=== PATIENT | male | born 1995 | race African-American/Black ===

== ENCOUNTER 2019-02-15 21:14 | Emergency (ER) | payer OTHER ==
[~2019-02-15 21:14] MED LIST: EPINEPHRINE INJ 1 MG/10 ML DISP.SYRIN ONE; ROCURONIUM BROMIDE INJ 50 MG/5 ML VIAL IV ONE; SODIUM BICARBONATE 8.4% INJ 50 MEQ/50 ML DISP.SYRIN ONE; SUCCINYLCHOLINE CHLORIDE INJ 200 MG/10 ML VIAL ONE
[2019-02-15] MEDS ORDERED: CEFEPIME 2 GM/D5W RTU 2 GM/50 ML RTUPB IV ONE ×2 (21:56→22:02)
[2019-02-15] MEDS ORDERED: HYDROCORTISONE SOD SUCCINATE INJ/PF 100 MG/2 ML SDV ONE (21:57)
[2019-02-15] MEDS ORDERED: SODIUM BICARBONATE 8.4% INJ 50 MEQ/50 ML DISP.SYRIN ONE ×3 (21:58→23:36)
[2019-02-15] MEDS ORDERED: CEFEPIME INJ 1 GM VIAL IV ONE (22:07)
[2019-02-15] MEDS ORDERED: ACETAMINOPHEN 325 MG SUPP.RECT PR ONE (22:20)
[2019-02-15] MEDS ORDERED: ACETAMINOPHEN 650 MG SUPP.RECT PR ONE ×2 (22:20→22:29)
[2019-02-15] MEDS ORDERED: VASOPRESSIN INJ 20 UNIT/1 ML VIAL ONE (22:22)
[2019-02-15 22:25] LABS: HEMATOCRIT 38.3 % (37.9-51.0); HEMOGLOBIN 11.4 g/dL (13.5-17.0); MEAN CORPUSCULAR HEMOGLOBIN 29.5 pg (27.0-33.4); MEAN CORPUSCULAR HGB CONC 29.7 g/dL (32.0-36.0); MEAN CORPUSCULAR VOLUME 99 fl (80-97); RED BLOOD COUNT 3.86 10^6/uL (4.35-5.55); RED CELL DISTRIBUTION WIDTH 14.3 % (11.5-14.0); WHITE BLOOD COUNT 11.3 10^3/uL (4.0-10.5)
[2019-02-15 22:29] LABS: ARTERIAL BLOOD BASE EXCESS -29.9 mmol/L; ARTERIAL BLOOD H2CO3 3.46 mmol/L (1.05-1.35); ARTERIAL BLOOD HCO3 9.7 mmol/L (20-24); ARTERIAL BLOOD TOTAL CO2 13.2 mmol/L (23-27)
[2019-02-15] MEDS ORDERED: NALOXONE HCL INJ/PF 0.4 MG/1 ML SDV IV ONE (22:29)
[2019-02-15] MEDS ORDERED: EPINEPHRINE INJ/PF 1 MG/1 ML AMPULE ONE ×3 (22:34→23:15)
[2019-02-15] MEDS ORDERED: VANCOMYCIN HCL INJ 1000 MG VIAL ONE ×2 (22:39→22:44)
--- NOTE | 2019-02-15 22:42 | RADIOLOGY REPORT (SQ) ---
EXAM DESCRIPTION: XR CHEST 1 VIEW COMPLETED DATE/TME: 02/15/2019 22:08 CLINICAL HISTORY: 24 years, Male, diff breath COMPARISON: None. NUMBER OF VIEWS: 1 TECHNIQUE: Portable chest LIMITATIONS: None. FINDINGS: The heart size is normal. Endotracheal and enteric tubes are partially visualized. Overlying cardiac leads and wires. The lung bases were not entirely included on the exam. As visualized the lungs are clear and there is no pneumothorax. Tip of the endotracheal tube is at the thoracic inlet. IMPRESSION: The lung bases were not entirely included on the exam. Endotracheal and enteric tubes are partially visualized. The visualized lungs are clear copyright 2010 [employer]- All Rights Reserved
[2019-02-15 22:57] LABS: ARTERIAL BLOOD FIO2 100%
[2019-02-15 23:04] LABS: ARTERIAL BLOOD PH 6.54 (7.35-7.45); ARTERIAL BLOOD PO2 24.5 mmHg (80-100)
[2019-02-15 23:05] LABS: PROTHROMBIN TIME > 120.0 SEC (11.4-15.4)
[2019-02-15 23:11] LABS: PLATELET COUNT 37 10^3/uL (150-450)
[2019-02-15] MEDS ORDERED: EPINEPHRINE INJ 1 MG/10 ML DISP.SYRIN ONE ×3 (23:17→23:35)
--- NOTE | 2019-02-15 23:21 | RADIOLOGY REPORT (SQ) ---
EXAM DESCRIPTION: XR CHEST 1 VIEW COMPLETED DATE/TME: 02/15/2019 00:00 CLINICAL HISTORY: 24 years, Male, CL PLACEMENT COMPARISON: Prior chest x-ray from today's date NUMBER OF VIEWS: 1 TECHNIQUE: Portable chest LIMITATIONS: None. FINDINGS: Heart size is normal. Interval placement of a central venous catheter with the tip in the SVC. No pneumothorax. Endotracheal and enteric tubes are in grossly unchanged position. Lungs are clear. IMPRESSION: Tip of the central line in the SVC. Other findings are stable copyright 2010 [employer]- All Rights Reserved
[2019-02-15 23:25] LABS: ABSOLUTE MONOCYTES # (MANUAL) 0.7 10^3/uL (0.1-1.4); BASOPHILS % (MANUAL) 0 % (0-2); EOSINOPHILS % (MANUAL) 0 % (0-6); MONOCYTES % (MANUAL) 6 % (3-13); TOTAL CELLS COUNTED 100
[2019-02-15 23:26] LABS: ABSOLUTE LYMPHOCYTES# (MANUAL) 6.9 10^3/uL (0.5-4.7); ABSOLUTE NEUTROPHILS# (MANUAL) 3.7 10^3/uL (1.7-8.2); LYMPHOCYTES % (MANUAL) 60 % (13-45); SEGMENTED NEUTROPHILS % (MAN) 33 % (42-78)
[2019-02-15 23:28] LABS: PLATELET COMMENT DECREASED
[2019-02-15 23:34] LABS: ANISOCYTOSIS SLIGHT; BURR CELLS 3+; POIKILOCYTOSIS 1+
[2019-02-15 23:35] LABS: NUCLEATED RED BLOOD CELLS 14 /100 WBC (0)
[2019-02-15] MEDS ORDERED: NALOXONE HCL INJ/PF 0.4 MG/1 ML SDV ONE (23:35)
[2019-02-15] MEDS ORDERED: NOREPINEPHRINE BITARTRATE INJ/PF 4 MG/4 ML SDV IV ONE (23:35)
[2019-02-16 00:42] LABS: APPEARANCE,URINE CLOUDY; BILIRUBIN,URINE NEGATIVE (NEGATIVE); COLOR,URINE DARK YELLOW; GLUCOSE, URINE NEGATIVE (NEGATIVE); KETONES,URINE TRACE mg/dL (NEGATIVE); LEUKOCYTE ESTERASE,URINE NEGATIVE (NEGATIVE); NITRITE,URINE NEGATIVE (NEGATIVE); PROTEIN,URINE 100 mg/dL (NEGATIVE); URINE SPECIFIC GRAVITY 1.034; UROBILINOGEN,URINE NEGATIVE mg/dL (<2.0)
--- NOTE | 2019-02-16 03:31 | ER Document Report ---
ED General - General Stated Complaint: UNRESPONSIVE Time Seen by Provider: 02/15/19 22:25 Cannot obtain history due to: Unstable vital signs, Altered mental status Notes: Patient is a 24-year-old male with no medical problems who presents by EMS with fever, confusion, hypoventilation, and vomiting. Apparently the patient went to [facility] on 2 occasions today for fever, headache, back pain and left side pain. He was discharged home at approximately 1730. EMS was called out to a hotel where the patient was staying with his over the weekend, was concerned that the patient was breathing irregularly and was becoming increa singly unresponsive. EMS noted on a Accu-Chek that the patient was hypoglycemic. Also noted on [id number] lactate the patient's lactate was 15. No further history can be obtained as the patient is obtunded, unresponsive - Related Data Allergies/Adverse Reactions: No Known Allergies Allergy (Verified 02/16/19 00:25) Past Medical History - General Information source: Emergency Med Personnel Cannot obtain history due to: Unstable vital signs, Altered mental status - Social History Smoking Status: Unknown if Ever Smoked Lives with: Spouse/Significant other Family History: Reviewed & Not Pertinent Review of Systems - Review of Systems -: Yes ROS unobtainable due to patient's medical condition Physical Exam - Vital signs Vitals: Pulse Ox 90 L 02/15/19 21:14 Interpretation: Hypotensive, Tachycardic, Hypoxic, Febrile Notes: PHYSICAL EXAMINATION: GENERAL: Critically ill in appearance, GCS 3 HEAD: Atraumatic, normocephalic. EYES: Pupils 5 mm on left, 2 on right, sluggishly reactive. ENT: OPA present in the right nostril. Black emesis coming from the mouth and OPA NECK: supple without lymphadenopathy LUNGS: Globally diminished air movement throughout. Hypoventilatory. HEART: Regular tachycardia without murmurs ABDOMEN: Soft, nondistended. No rigidity. EXTREMITIES: no pitting or edema. No cyanosis. NEUROLOGICAL: No response to noxious stimuli in any extremity. GCS 3 PSYCH: Obtunded SKIN: Hot to touch. Poor turgor. Course - Re-evaluation Re-evalutation: 02/16/19 03:16 Documentation is necessarily delayed as I was continuously at this patient's bedside for greater than 140 minutes. In summary this patient presented by EMS, lethargic, mottled, hypotensive, having dark emesis around an OPA and out of his mouth. The patient had agonal respirations and was being ventilated via bag valve mask. On initial assessment patient was given 0.4 mg of naloxone to ensure that this was not a presentation of opiate overdose with no relief. Initial examination showed a GCS of 3, no response to noxious stimuli in any extremity. Pupils were noted to be unequal with the left being approximately 5 mm in the right being 2. Patient's initial blood pressure was in the 50s sys tolic. We were unable to get a good pulse oximetry reading secondary to poor perfusion. As the patient appeared to be having progressively worsening hypoxia I did proceed with intubation without getting RSI medications. The patient did have cardiac arrest prior to proceeding with intubation. See intubation note for complications during intubation. In summary the patient had a very large volume coffee-ground emesis that appeared to be obstructing he has entire airway. Continuous suction was used to try to clear the airway unsuccessfully. I therefore blindly intubated the esophagus and insufflated the tube to allow the emesis to pass out of the ET tube and clear the airway. The airway was then able to be visualized and an ET tube was passed. Bilateral breath sounds were auscultated by multiple staff members and color change noted on capnography. Standard ACLS protocols were used during resuscitation. Patient did have return of spontaneous circulation. Temperature Traore catheter was placed and patient was noted to be febrile to 104 F. A left intraosseous line was placed as we only had one point of IV access and this did fall out during the code. A right humeral interosseous line was subsequently placed. The patient had aggressive IV fluid resuscitation, and epinephrine and norepinephrine drip were initiated. Patient was given multiple rounds of bicarbonate and a bicarb infusion was started. I then placed a right internal jugular central line for improved access. As this line was being completed the patient again had cardiac arrest. ACLS protocols were followed. Patient had multiple periods where he would regain spontaneous circulation, maintain blood pressure and pulse for anywhere between several minutes and 10 minutes and then have rearrest. The patient saturations on the ventilator with 12 of PEEP and 100% FiO2 at best came to 92%. Chest x-ray did verify ET tube placement and we continued to appreciate good breath sounds bilaterally. The patient had a lactate of 15 for EMS prior to the initial presentation. Labs were drawn from central line. The patient proceeded through multiple rounds of arrest followed by return of spontaneous circulation. Please review nursing documentation for further details. The patient over the course of his resuscitation was placed on a norepinephrine infusion, epinephrine infusion and vasopressin infusion. He had a bolus of cefepime 2 g pushed. Vancomycin 2 g was initiated but unable to be completed as patient did pass prior to completion. Patient was empirically given multiple rounds of bicarbona te and a bicarb infusion. He was given a total of 5 L of lactated Ringer's. When labs did return it was clear that the patient was also in disseminated intervascular coagulopathy. This was also clinically noted secondary to coffee- ground emesis which became increasingly bright red through the OG tube as the code proceeded. The patient also began oozing from multiple sites including around his central line, intraosseous lines as well as a prior venipuncture site from his visit to [facility] earlier today. INR was too elevated to be calculated. Platelets were noted to be 37. Lactate was 25. As the resuscitation proceeded, the patient would have loss of circulation and then return of spontaneous circulation but the windows of spontaneous circulation were increasingly narrow. The overall clinical picture continued to deteriorate and it became clear that this patient would not survive the resuscitation. The combination of prolonged periods of hypotension, hypoxia, as well as a clear picture of DIC and overwhelming sepsis made clear that the patient would not survive. I did discuss at length with his as well as family members of the patient on the phone. Patient was declared at 2322. The exact cause of this patient's rapid deterioration and is unclear and I was unable to complete a full work-up secondary to his critical nature from time of presentation to time of . It does appear that the patient had overwhelming sepsis of an uncertain etiology. The patient did visit [facility] on 2 occasions today prior to coming to [facility] by EMS. Apparently on his second visit he did have a CT scan of the abdomen pelvis as well as an ultrasound which apparently showed lymphadenopathy but was otherwise unremarkable per the . The does note that the patient was complaining of significant pain to the left side of his body, a severe headache, and back pain. He apparently was fine less than 24 hours ago, woke up this mo rning with shaking and chills, noted to have a fever and had a rapid progression from being well enough to spend enjoyable evening with his less than 24 hours ago to passing. I have a high level concern that the patient may have had bacterial meningitis as there are a few other diagnoses that I can think of that would result in such a rapid deterioration and of an otherwise young and h ealthy male with a septic picture. Patient could have also had an intracranial abscess or an intracranial bleed secondary to DIC from underlying sepsis particular given his asymmetric pupils at time of presentation. - Vital Signs Vital signs: Temp Pulse Resp BP Pulse Ox 90 L 02/15/19 21:14 - Laboratory Result Diagrams: 02/15/19 22:08 02/15/19 22:08 Laboratory results interpreted by me: 02/15/19 02/15/19 02/15/19 22:08 22:08 22:08 WBC 11.3 H RBC 3.86 L Hgb 11.4 L MCV 99 H MCHC 29.7 L RDW 14.3 H Plt Count 37 L Seg Neuts % (Manual) 33 L Lymphocytes % (Manual) 60 H Abs Lymphs (Manual) 6.9 H PT > 120.0 H* Carbonic Acid ABG pH ABG pCO2 ABG pO2 ABG HCO3 ABG Total CO2 Lactic Acid 25.3 H Urine Protein Urine Ketones Urine Blood 02/15/19 02/15/19 22:10 22:44 WBC RBC Hgb MCV MCHC RDW Plt Count Seg Neuts % (Manual) Lymphocytes % (Manual) Abs Lymphs (Manual) PT Carbonic Acid 3.46 H ABG pH 6.54 L* ABG pCO2 115.0 H* ABG pO2 24.5 L* ABG HCO3 9.7 L ABG Total CO2 13.2 L Lactic Acid Urine Protein 100 H Urine Ketones TRACE H Urine Blood MODERATE H - Diagnostic Test Radiology reviewed: Image reviewed, Reports reviewed Radiology results interpreted by me: 02/16/19 03:31 Chest x-ray 1: ET tube in appropriate location Chest x-ray 2: ET tube remains in appropriate position, right internal jugular line in the appropriate location Procedures - Central Line Right Internal jugular Consent obtained: No - Emergent Central line pre-insertion: Sterile PPE donned, Chloraprep applied, Sterile drapes applied Central line lumen type: Triple Ultrasound guided: Yes CM at insertion site: 16 Line secured with sutures: Yes Central line post-insertion: Blood return from lumens Number of attempts: 1 Complications: No - Intubation Orotracheal Airway evaluation: Copious secretions - Over 400 cc of coffee-ground emesis was suctioned prior to being able to visualize the airway Mallampati Classification: Class 2 Medications: Other - None given Intubation method: Orotracheal Blade type: Santos Blade size: 4 Equipment used: Glidescope ETT size: 8.0 ETT secured at: Gums ETT secured at (cm): 23 Breath Sounds after Intubation: Equal Ventilator settings: SIMV Tidal volume: 450 FiO2: 100 Respirations: 18 PEEP: 12 Post Intubation Xray: Yes Intubation Complications: Oral-unsuccessful attempt, Vomited, Apparent aspiration, O2 saturation decreased Notes: 02/16/19 03:14 Extremely challenging airway. Patient was hypoventilatory and began vomiting after arriving to the emergency department. The patient was noted to be desaturating and so I elected to obtain an airway without providing any RSI medications as the patient was becoming extremely hypoxic. Initially attempted with MAC 4 direct visualization. Was able to view the epiglottis but the entire airway was completely filled with coffee-ground emesis. Continuous suction was provided and even with continuous suction I was unable to clear the airway. ET tube was blindly inserted into the esophagus and insufflated to allow for emesis to come out the ET tube and to block off the esophagus. A glide scope was then used for intubation of airway and was successful on first pass attempt. Intubation was performed during chest compressions. Critical Care Note - Critical Care Note Total time excluding time spent on procedures (mins): 140 Comments: Critical care time spent obtaining history from EMS, continuous resuscitation at the bedside for over 2 hours, evaluation of patient's response to treatment, examination of patient, ordering and performing treatments and interventions, ordering and review of laboratory studies, continuous re-evaluation of patient's condition, ordering and review of radiographic studies and discussing patient's status with family Discharge - Discharge Clinical Impression: Septic shock, DIC (disseminated intravascular coagulation), Coffee ground emesis, Acute respiratory failure with hypoxia, Lactic acidosis, Cardiac arrest Disposition:
--- NOTE | 2019-02-16 07:38 | EKG REPORT ---
SEVERITY:- ABNORMAL ECG - SINUS OR ECTOPIC ATRIAL TACHYCARDIA RIGHT BUNDLE BRANCH BLOCK : Confirmed by: Alma Gomez MD 16-Feb-2019 07:37:19
== END 2019-02-15 23:22 | disposition expired ==
LOC: ER 21:14
PROC: 0BH17EZ Insertion of Endotracheal Airway into Trachea, Via Natural or Artificial Opening (ICD-10-PCS; principal; 2019-02-15)
PROC: 05HM33Z Insertion of Infusion Device into Right Internal Jugular Vein, Percutaneous Approach (ICD-10-PCS; 2019-02-15)
DX: A41.9 Sepsis, unspecified organism (principal); R65.21 Severe sepsis with septic shock; J96.01 Acute respiratory failure with hypoxia; R11.10 Vomiting, unspecified; E87.2 Acidosis; I46.9 Cardiac arrest, cause unspecified; R50.9 Fever, unspecified; R41.0 Disorientation, unspecified; R51 Headache; M54.9 Dorsalgia, unspecified; I95.9 Hypotension, unspecified; R00.0 Tachycardia, unspecified
CPT/HCPCS: 93005; 99291; 99292; 92950; 51702; 96375; 96365; 36415; 87040; 87086; 82962; 82803; 85025; 85610; 81001; 83605; 71045; 94660; 93010; 36600; 31500; 36556; C1751; J3490 ×2; J0171; J0330